=== PATIENT | female | born 1945 | race Caucasian/White ===

== ENCOUNTER 2017-09-25 16:12 | Observation (INO) | payer MEDICARE, MEDICAID, SELFPAY ==
[2017-09-25 16:13] VITALS: BP 146/91; PULSE 108; RESP 16; TEMP 36.4; O2SAT 98; BMI 55.4
--- NOTE | 2017-09-25 16:58 | ED.DCSUM_ITS ---
- ER Visit Summary Date of Service: 09/25/17 Chief Complaint: [Back pain] History of Present Illness: The patient is a 72 F [presents the emergency department with back pain ?2 weeks. Patient states that she has had severe discomfort for the last 2 weeks in her low back into both hips. Pain mostly on the right side today. Patient states this morning she had some pain that radiated down her right leg to about the knee and some numbness to the lateral aspect of her right thigh. Patient denies any trauma to her back. Patient states that she had some x-rays of her low back and hips 5 or 6 months ago that showed some arthritic changes. Patient had an appointment with her primary care physician today however she was late to do some traffic issues and therefore was told to come to the emergency department. Patient states that she has had some loose stools recently denies change in bowel or bladder function. Patient denies weakness in the extremities. Patient had a low-grade fever up to 100.4 yesterday. Patient has a history of prior lung transplant and is on multiple antirejection meds.] Patient states that she has 3 beds and how she she has been using all 3 at night to try to get comfortable. Physical Examination: [HEENT-PERRLA, EOMI. Cranial nerves II through XII grossly intact. TMs clear. Mucous membranes moist. No adenopathy. Cardiovascular-regular rate and rhythm without murmur or ectopy Lungs-clear to auscultation, chest wall stable without crepitus or subcu emphysema Abdomen-normoactive bowel sounds, soft, nontender, no rebound or rigidity, no peritoneal signs. Back exam-I am unable to reproduce patient's pain with palpation of her back. Patient has no significant tenderness over the thoracic or lumbar spine. Patient has no significant tenderness over the paraspinal musculature. There is no erythema or warmth noted to the skin. Patient has negative straight leg raise bilaterally. Deep tendon reflexes are plus 2 out of 4 bilaterally at the patella and Achilles. Patient has normal L5 extension bilaterally. Patient has normal sensation to light touch bilaterally. Extremities-intact ?4, normal range of motion, normal pulses, atraumatic] Test Results: [Urinalysis obtained showed 25 leukocyte esterase, positive nitrites, 0-5 WBCs, 0-5 RBCs. Emergency Department Course and Treatment]-patient was medicated with Dilaudid and Zofran and had good pain relief with that. Treatment Plan: [Patient will be admitted for pain control and further imaging] Disposition: [Admit] Impression: [Lumbar radiculopathy Intractable pain] This note was generated with [employer] dictation software. It may contain incorrect words, spelling, and punctuation that were not noted in review of the chart prior to signing ED Disposition - Plan for ED Patient: Chief Complaint: Back Referrals: Ruth Rashid MD [Primary Care Provider] -
[2017-09-25] MEDS: Ondansetron 4 MG/2 ML Vial IM (17:10)
[2017-09-25] MEDS: HYDROmorphone 1 MG/ML Syringe IM (17:10)
[2017-09-25 17:32] LABS: Bacteria 0 SEEN /hpf (None Seen); Mucous, Urine 0 SEEN /hpf (<or=2+)
[2017-09-25 17:36] LABS: Color, Urine Yellow (Yellow); Glucose, Dipstick Normal (Normal); Ketone-Dipstick 15 mg/dl (Negative); Leukocyte Esterase-Dipstick 25 /ul (Negative); Nitrite-Dipstick Positive (Negative); Occult Blood-Urine 25 /ul (Negative); Protein-Dipstick 100 mg/dl (Negative); Specific Gravity, Urine 1.025 (1.002-1.030); Urine Clarity Clear (Clear); Urine Urobilinogen 4 mg/dl (Normal)
[2017-09-25 17:39] LABS: Urine Bilirubin Dipstick 6 mg/dL (Negative)
[2017-09-25 17:44] LABS: Red Blood Cells-Urine 0-5 SEEN /hpf (0-5); Squamous Epithelial Cells - UA 0-5 SEEN /hpf (5-10); White Blood Cells 0-5 SEEN /hpf (0-5)
[2017-09-25 17:45] LABS: Hyaline Cast 10-25 SEEN /lpf (0-5)
[2017-09-25 18:13] VITALS: BP 127/78; PULSE 91; RESP 16; O2SAT 98
--- NOTE | 2017-09-25 18:29 | PCM.HP.STD ---
Problem List (1) Intractable back pain Status: Acute (2) Interstitial lung disease Status: Chronic (3) History of lung transplant Status: Chronic (4) GERD (gastroesophageal reflux disease) Status: Chronic Qualifiers: Esophagitis presence: esophagitis presence not specified Qualified Code(s): K21.9 - Gastro-esophageal reflux disease without esophagitis (5) RLS (restless legs syndrome) Status: Chronic (6) History of tobacco use Status: Chronic History of Present Illness Date of Admission: 09/25/17 Chief Complaint: Intractable back pain The patient is a 72 y/o F w/ PMHx: History of Interstitial Lung Disease s/p BL Lung Trxp 2009 on chronic anti-rejection medications, GERD, RLS, Chronic Diarrhea who presents to the [facility] ED on 09/25/17 with history of ongoing lower extremity as well as the lateral aspect of the right thigh with no recent trauma or increased activity ongoing and progressively worsening ?2 weeks noted to be nearly bedbound over the last 4 days with recent PCP evaluation and plain films of the lower back and hips unremarkable. She has noted recent low grade temperature recently. In the ED workup T 97.6, heart rate 108, BP 146/91, respiratory rate 16, 98% on room air, pending CBC, pending BMP, UA w/ positive leukocyte esterase and nitrites although no marketed WBC or urine bacteria noted. Int he ED patient administered zofran and dilaudid with notable improvement. Past Medical History Past Medical History (Chronic Problems): Chronic Problems Interstitial lung disease (Chronic) History of lung transplant (Chronic) GERD (gastroesophageal reflux disease) (Chronic) RLS (restless legs syndrome) (Chronic) History of tobacco use (Chronic) Allergies No Known Allergies Allergy (Verified 05/05/17 16:21) Home Medications: Ambulatory Orders Medication Instructions Recorded Acyclovir [Zovirax] 200 mg PO QODAY 09/27/15 Carbidopa/Levodopa [Carbidopa-Levo 1 each PO BID 09/27/15 25-100 mg Odt] Esomeprazole Mag Trihydrate 20 mg PO BID 09/27/15 [Nexium] Fluoxetine [Prozac] 30 mg PO DAILY 09/27/15 Mycophenolate Mofetil [Cellcept] 500 mg PO BID 09/27/15 Sucralfate [Carafate] 1 gm PO 4X/DAY 05/23/16 Tacrolimus [Astagraf Xl] 2 mg PO BID 09/27/15 predniSONE tablet 6 mg PO QODAY 09/27/15 Multivitamin [Multiple Vitamins] 1 each PO DAILY 05/05/17 Surgical History: - - Lung Txp BL, Trisha, Hysterectomy, Appendectomy, Cholecystectomy. 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 Tobacco Use: Non-smoker Alcohol: Rare Drugs: None - *Family History Maternal History Items: Diabetes Paternal History Items: COPD, Diabetes, Heart Disease Review of Systems Constitutional: Reports: Fever - Low grade T day prior., Malaise, Weakness, Fatigue. Denies: Chills, Weight Change HEENT: Denies: Head Aches, Sinus Congestion, Sinus Drainage Cardiovascular: Denies: Chest Pain, Palpitations Respiratory: Denies: Cough, Shortness of breath at rest, Sputum production Gastrointestinal: Denies: Abdominal Pain, Nausea, Vomiting Genitourinary: Denies: Dysuria Musculoskeletal: Reports: Back Pain, Leg Pain. Denies: Joint Pain, Joint Tenderness Skin: Denies: Rash, Wounds Neurological: Reports: Tingling. Denies: Focal weakness, Numbness Psychiatric: Reports: Anxiety, Depression. Denies: Homicidal Ideations, Suicidal Ideations Hematologic/ Lymphatic: Denies: Easy Bruising, Easy Bleeding VTE Information - Inpt Only VTE Present on Admission: No VTE Mechan Device Prophylaxis: SCD's VTE Pharm Prophylaxis ordered?: Yes Patient Problems: Active and Suspected Problems Intractable back pain (Acute) Subjective: Seated upright in the ED bed, NAD, notes improvement w/ recent pain regimen. Objective: Physical Examination: General: awake, alert, oriented x 3 and cooperative, seated upright in the ED bed in no apparent distress, notes marked improvement. Skin: normal color, turgor, no icterus, cyanosis. HEENT: AT/NC, EOMI, PERRLA, mildly dry MM, no carotid bruits or JVD noted. Lungs: CTA bilaterally, moderate effort, mild decrease BL bases, no rales, ronchi or wheezing. Heart: Regular rate and rhythm; no gallop, rub audible. Abdomen: soft, NTTP, ND, normal BS, no HSM. Extremities: no cyanosis, clubbing, + R SLR. Neurological: patient awake, alert, oriented x 3; cognitive function intact; pupils equally reactive to light and accomodation; cranial nerves II-XII grossly normal, moving all 4 extremities but limited RLE, some discomfort w/ straight leg raise, no discomfort w/ lumbar posterior palpation, no current radiculopathy, strength moderately to severely globally decreased. Psychiatric: affect appears normal, no acute evidence of depressive or anxiety feelings. - Physical Exam Vital Signs Temp Pulse Resp BP Pulse Ox 97.6 F L 108 H 16 146/91 H 98 09/25/17 16:13 09/25/17 16:13 09/25/17 16:13 09/25/17 16:13 09/25/17 16:13 Oxygen Delivery Method Room Air Weight: 313 lb 0.902 oz Body Mass Index (BMI) 55.4 Laboratory Tests Past 24 Hrs 09/25/17 16:20 Urine Color Yellow Urine Clarity Clear Urine pH 5.0 Ur Specific [place] 1.025 Urine Protein 100 H Urine Glucose (UA) Normal Urine Ketones 15 H Urine Occult Blood 25 H Urine Nitrite Positive H Urine Bilirubin 6 H Urine Urobilinogen 4 H Ur Leukocyte Esterase 25 H Urine RBC 0-5 SEEN Urine WBC 0-5 SEEN Ur Squamous Epith Cells 0-5 SEEN Urine Bacteria 0 SEEN Hyaline Casts 10-25 SEEN Urine Mucus 0 SEEN Assessment/Plan Active and Suspected Problems Intractable back pain (Acute) The patient is a 72 y/o F w/ PMHx: History of Interstitial Lung Disease s/p BL Lung Trxp 2009 on chronic anti-rejection medications, GERD, RLS, Chronic Diarrhea who presents to the [facility] ED on 09/25/17 with history of ongoing lower extremity as well as the lateral aspect of the right thigh with no recent trauma or increased activity ongoing and progressively worsening ?2 weeks noted to be nearly bedbound over the last 4 days with recent PCP evaluation and plain films of the lower back and hips unremarkable. She has noted recent low grade temperature recently. (1) Acute Intractable Back Pain w/ Radiculopathy: Outpatient plain films noted to be unremarkable. Intractable pain in the ED, did improve w/ interventions. Will admit to [facility], maintain on fall precautions, frequent positioning, initiate low dose gabapentin, scheduled toradol, po/IV pain regimen, flexeril low dose, prednisone burst therapy, anti-emetics, bowel regimen. Will consult PT and OT for evaluation. Will obtain MRI lumbar region given ongoing discomfort. (2) Low Grade Temperature, Unclear Etiology: UA w/ + LE low amount and nitrite but no WBC or bacteria, UCx pending, will obtain CXR, pending CBC, BMP upon admission. Closely monitor given Txp status. (3) History of Interstitial Lung Disease s/p BL Lung Txp: Noted Txp 2009 on chronic anti-rejection medications, continue home zovirax, cellcept, tacrolimus, hold lower dose prednisone while on burst therapy. (4) Anxiety and Depression: Maintain on home prozac regimen. (5) GERD, s/p Trisha: Maintain on home PPI, sucralafate. (6) RLS: Maintain on home sinemet regimen. (7) DVT Prophylaxis: SCDs, lovenox if BMP appropriate. Code Visit OBSV E&M: 11133 Initial observation care L3
[2017-09-25 18:43] LABS: Absolute Lymphocyte Count 1.59 X10^3/ul (0.83-4.51); Absolute Neutrophil Count 6.9 X10^3/uL (2.0-7.7); Basophil# 0.03 X10^3/uL; Basophil% 0.3 % (0-1); Eosinophil# 0.03 X10^3/uL; Eosinophils% 0.3 % (0-5); Hematocrit 36.4 % (37-47); Hemoglobin 11.9 g/dl (12.0-15.0); Lymphocyte # 1.59 X10^3/ul (4.0); Lymphocyte % 17.1 % (19-41); Mean Corp Hgb Conc 32.7 g/gl (32-36); Mean Corpuscular Hgb 29.5 pg (27.0-32.0); Mean Corpuscular Volume 90.3 fL (81-99); Mean Platelet Vol. 9.4 fl (6.2-12.0); Monocyte# 0.74 X10^3/uL; Monocyte% 7.9 % (0-10); Neutrophil % 74.2 % (47-70); Platelet Count 364 K/mm3 (150-450); RBC Distribution Width CV 13.2 % (11.6-14.6); RBC Distribution Width SD 43.3 fl (35.1-43.9); Red Blood Count 4.03 M/mm3 (4.2-5.4); White Blood Count 9.3 K/mm3 (4.4-11.0)
[2017-09-25 18:48] LABS: POSITIVE COUNT NO; POSITIVE DIFFERENTIAL NO; POSITIVE MORPHOLOGY NO
[2017-09-25 18:54] VITALS: BMI 25.3
[2017-09-25 18:55] LABS: Anion Gap 7 (5-15); BUN 33 mg/dL (7-18); BUN/Creat Ratio 20.2 RATIO (10-20); Calcium,Total 8.7 mg/dL (8.5-10.1); Chloride 106 mmol/L (98-107); Creatinine, Serum 1.63 mg/dL (0.55-1.02); EST Glomerular Filtration Rate 33 mL/min (>60); Est Glom Filt Rate - Afr Amer 40 mL/min (>60); Estimated Creatinine Clearance 26.57 ml/min; Glucose 102 mg/dL (74-106); Potassium 4.3 mmol/L (3.5-5.1); Sodium Level 135 mmol/L (136-145)
[2017-09-25 19:13] VITALS: BP 99/73; PULSE 94; RESP 18; TEMP 37.4; O2SAT 99
[2017-09-25] MEDS: Gabapentin 100 MG Capsule PO (19:41)
[2017-09-25] MEDS: predniSONE 20 MG Tablet 40 MG PO (19:41)
--- NOTE | 2017-09-25 20:01 | RAD_ITS ---
STUDY: X-RAY CHEST REASON FOR EXAM: Female, 72 years old. Fever. Previous double lung transplant. TECHNIQUE: Frontal and lateral views of the chest. COMPARISON: 09/27/2015. FINDINGS: The lungs are clear and expanded. There is no demonstrated pleural abnormality. Normal size heart. Normal mediastinum and deysi. Normal visualized pulmonary arteries. Normal visualized aortic arch and descending thoracic aorta. Normal visualized thoracic spine. Normal visualized ribs, clavicles, and shoulders. Fixation prosthesis is seen across the body of the sternum. There is no demonstrated abnormality of the visualized soft tissue structures of the upper abdomen. RAD/Chest PA and Lateral IMPRESSION: Normal x-ray examination of the chest. Electronically Signed: Roberto Hennessy MD at 20:24 EDT , Service support ,
[2017-09-25 21:04] VITALS: O2SAT 98
[2017-09-25 21:35] VITALS: PULSE 94; RESP 18; O2SAT 99
[2017-09-25 21:51] VITALS: BP 138/75; PULSE 87; RESP 18; TEMP 36.8; O2SAT 98
[2017-09-25] MEDS: Sucralfate 1 GM Tablet PO (21:53)
[2017-09-25] MEDS: Tacrolimus Anhydrous 1 MG Capsule 2 MG PO (21:53)
[2017-09-25] MEDS: Pantoprazole Sodium 20 MG Tablet PO (21:53)
[2017-09-25] MEDS: Mycophenolate Mofetil 250 MG Capsule 500 MG PO (21:54)
[2017-09-26 03:12] VITALS: BP 99/67; PULSE 83; RESP 18; TEMP 36.8; O2SAT 99
[2017-09-26 05:46] LABS: Absolute Lymphocyte Count 0.83 X10^3/ul (0.83-4.51); Absolute Neutrophil Count 5.9 X10^3/uL (2.0-7.7); Basophil# 0.01 X10^3/uL; Basophil% 0.1 % (0-1); Hematocrit 35.3 % (37-47); Hemoglobin 11.5 g/dl (12.0-15.0); Lymphocyte # 0.83 X10^3/ul (4.0); Lymphocyte % 11.9 % (19-41); Mean Corp Hgb Conc 32.6 g/gl (32-36); Mean Corpuscular Hgb 30.3 pg (27.0-32.0); Mean Corpuscular Volume 93.1 fL (81-99); Mean Platelet Vol. 9.6 fl (6.2-12.0); Monocyte# 0.25 X10^3/uL; Monocyte% 3.6 % (0-10); Neutrophil # 5.86 X10^3/uL (2.7-7.7); Neutrophil % 84.1 % (47-70); Platelet Count 344 K/mm3 (150-450); RBC Distribution Width CV 12.9 % (11.6-14.6); RBC Distribution Width SD 42.5 fl (35.1-43.9); Red Blood Count 3.79 M/mm3 (4.2-5.4)
[2017-09-26 05:59] LABS: Anion Gap 9 (5-15); BUN 42 mg/dL (7-18); BUN/Creat Ratio 23.7 RATIO (10-20); Calcium,Total 8.9 mg/dL (8.5-10.1); Chloride 108 mmol/L (98-107); Creatinine, Serum 1.77 mg/dL (0.55-1.02); EST Glomerular Filtration Rate 30 mL/min (>60); Est Glom Filt Rate - Afr Amer 36 mL/min (>60); Estimated Creatinine Clearance 24.46 ml/min; Glucose 137 mg/dL (74-106); Potassium 4.7 mmol/L (3.5-5.1); Sodium Level 139 mmol/L (136-145)
[2017-09-26 06:05] LABS: POSITIVE COUNT NO; POSITIVE DIFFERENTIAL NO; POSITIVE MORPHOLOGY NO
[2017-09-26] MEDS: Sucralfate 1 GM Tablet PO ×2 (06:51→12:16)
[2017-09-26] MEDS: Carbidopa/Levodopa 25/100 Tablet PO (06:51)
[2017-09-26 07:20] VITALS: O2SAT 96
--- NOTE | 2017-09-26 08:00 | MRI_ITS ---
STUDY: MRI LUMBAR SPINE WITHOUT CONTRAST REASON FOR EXAM: Female, 72 years old. Low back pain and right leg and hip pain. TECHNIQUE: Standardized fat and water weighted pulse sequences were obtained in the sagittal and axial planes. COMPARISON: None FINDINGS: T12-L1: There is narrowing of the disc. The endplates have irregular contours possibly related to small Schmorl's nodes. There is a disc bulge and osteophyte complex. Neuroforamina are bilaterally narrowed without evidence for nerve impingement. Normal lumbar lordosis. There is no substantial scoliosis. Normal conus medullaris that terminates at the T12-L1 level. L1-2: There is mild annular disk bulge and osteophyte complex. There is mild degenerative arthropathy of the facet joints. Bilateral neuroforamina are narrowed without MR evidence for nerve impingement. There is no significant central canal stenosis. L2-3: There is abnormal signal within the posterior aspect of the right side of the L2 vertebral body. There appears to be some extraosseous extension of this lesion into the spinal canal causing narrowing of the lateral recess and probable impingement of the right L3 nerve root at the lateral recess. Neural foramina are bilaterally narrowed. There may be some tumoral involvement of the right L2 nerve root at the neural foramen. L3-4: There is a moderately large broad central disc protrusion. There is moderate annular disc bulge and osteophyte complex. There is mild central acquired canal stenosis. There is moderate degenerative arthropathy of facet joints. Neural foramina are bilaterally narrowed with potential impingement of the right L3 nerve root at the neural foramen. L4-5: There is a large focal left foraminal disc protrusion and osteophyte complex. There is severe left-sided neural foraminal narrowing with probable impingement of the left L4 nerve root at the neural foramen. The right neural foramen is moderately narrowed. There is severe acquired canal stenosis. There is a moderately severe degenerative arthropathy of the left-sided facet joint and mild degenerative arthropathy of the right-sided facet joint. L5-S1: There is mild annular disk bulge and osteophyte complex. There is mild degenerative arthropathy of the facet joints. Bilateral neuroforamina are narrowed without MR evidence for nerve impingement. There is no significant central canal stenosis. Normal visualized sacral ala. Normal visualized paraspinous soft tissue structures. MRI/Spine Lumbar (Routine) IMPRESSION: 1. 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 2. Multilevel degenerative disc disease and degenerative arthropathy lumbar spine with acquired canal stenosis, neural foraminal narrowing and potential nerve impingement, as described. Electronically Signed: Johana Delgado MD at 10:16 EDT , Service support ,
[2017-09-26 10:20] VITALS: BP 107/55; PULSE 99; RESP 18; TEMP 36.8; O2SAT 99
[2017-09-26] MEDS: Multivitamins,Therapeutic Tablet 1 TABLET PO (10:31)
[2017-09-26] MEDS: predniSONE 20 MG Tablet 40 MG PO (10:31)
[2017-09-26] MEDS: FLUoxetine 10 MG Capsule 30 MG PO (10:31)
[2017-09-26] MEDS: Gabapentin 100 MG Capsule PO (10:31)
[2017-09-26] MEDS: Tacrolimus Anhydrous 1 MG Capsule 2 MG PO (10:32)
[2017-09-26] MEDS: Mycophenolate Mofetil 250 MG Capsule 500 MG PO (10:32)
[2017-09-26] MEDS: Pantoprazole Sodium 20 MG Tablet PO (10:33)
--- NOTE | 2017-09-26 10:57 | CASEMGMT ---
BLANCA SARAH Face to Face with patient for initial transition planning/care coordination assessment. BLANCA SARAH introduced self and role at [facility]. Patient sitting in chair, alert and oriented. Patient willing to participate in assessment and is able to answer all questions appropriately. Care providers, pharmacy, and demographics verified. See link attached. Patient wishes to discharge home, denies need for home health at this time. Patient states that she has old HPOA with listed as HPOA. SHIN Healy updated in regards to patient wishing to update HPOA. Patient states she has no further needs or concerns at this time. CM to follow for discharge planning needs that may arise. Disposition Plan: Patient to discharge home with family support and follow-up plans in place.
--- NOTE | 2017-09-26 13:53 | PCM.DC ---
- Discharge Diagnoses Current Active Problems: Current Active and Chronic Problems Interstitial lung disease (Chronic) History of lung transplant (Chronic) GERD (gastroesophageal reflux disease) (Chronic) RLS (restless legs syndrome) (Chronic) History of tobacco use (Chronic) Intractable back pain (Acute) You will use the following diet at home:: No restrictions Your food should be the consistency of: Regular Discharge Activity: Return to Normal Activity Call your doctor if you observe: - - Sudden loss of bladder or bowel, or sudden development of weakness of right leg, particulary in thigh. Allergies/Adverse Reactions: Allergies No Known Allergies Allergy (Verified 05/05/17 16:21) Medications to take at Discharge Acyclovir [Zovirax] 200 mg PO MOWEFR 09/27/15 Carbidopa/Levodopa [Carbidopa-Levo 25-100 mg Odt] 1 each PO BID 09/27/15 Esomeprazole Mag Trihydrate [Nexium] 20 mg PO BID 09/27/15 Fluoxetine [Prozac] 30 mg PO DAILY 09/27/15 Mycophenolate Mofetil [Cellcept] 500 mg PO BID 09/27/15 Sucralfate [Carafate] 1 gm PO 4X/DAY 09/27/15 Tacrolimus [Astagraf Xl] 2 mg PO BID 09/27/15 predniSONE tablet 6 mg PO TUTHSA 09/27/15 Multivitamin [Multiple Vitamins] 1 each PO DAILY 05/05/17 Gabapentin [Neurontin] 100 mg PO TIDCM #90 cap 09/26/17 Hydrocodone Bitart/Apap 5-325 [[place] 5/325] 1 - 2 tab PO Q6H PRN PRN 5 Days #15 tab 09/26/17 The following prescriptions were given: Hydrocodone Bitart/Apap 5-325 [[place] 5/325] 1 - 2 tab PO Q6H PRN PRN 5 Days #15 tab PRN Reason: Moderate-severe pain Gabapentin [Neurontin] 100 mg PO TIDCM #90 cap Primary Care Physician: Ruth Rashid MD [Primary Care Provider] - Please follow up with your Primary Care Physician in: Call her office today for follow up plan with neurosurgery. Otherwise
--- NOTE | 2017-09-26 13:56 | DCINST_ITS ---
- Discharge Diagnoses Current Active Problems: Current Active and Chronic Problems Interstitial lung disease (Chronic) History of lung transplant (Chronic) GERD (gastroesophageal reflux disease) (Chronic) RLS (restless legs syndrome) (Chronic) History of tobacco use (Chronic) Intractable back pain (Acute) You will use the following diet at home:: No restrictions Your food should be the consistency of: Regular Discharge Activity: Return to Normal Activity Call your doctor if you observe: - - Sudden loss of bladder or bowel, or sudden development of weakness of right leg, particulary in thigh. Allergies/Adverse Reactions: Allergies No Known Allergies Allergy (Verified 05/05/17 16:21) Medications to take at Discharge Acyclovir [Zovirax] 200 mg PO MOWEFR 09/27/15 Carbidopa/Levodopa [Carbidopa-Levo 25-100 mg Odt] 1 each PO BID 09/27/15 Esomeprazole Mag Trihydrate [Nexium] 20 mg PO BID 09/27/15 Fluoxetine [Prozac] 30 mg PO DAILY 09/27/15 Mycophenolate Mofetil [Cellcept] 500 mg PO BID 09/27/15 Sucralfate [Carafate] 1 gm PO 4X/DAY 09/27/15 Tacrolimus [Astagraf Xl] 2 mg PO BID 09/27/15 predniSONE tablet 6 mg PO TUTHSA 09/27/15 Multivitamin [Multiple Vitamins] 1 each PO DAILY 05/05/17 Gabapentin [Neurontin] 100 mg PO TIDCM #90 cap 09/26/17 Hydrocodone Bitart/Apap 5-325 [[place] 5/325] 1 - 2 tab PO Q6H PRN PRN 5 Days #15 tab 09/26/17 The following prescriptions were given: Hydrocodone Bitart/Apap 5-325 [[place] 5/325] 1 - 2 tab PO Q6H PRN PRN 5 Days #15 tab PRN Reason: Moderate-severe pain Gabapentin [Neurontin] 100 mg PO TIDCM #90 cap Primary Care Physician: Ruth Rashid MD [Primary Care Provider] - Please follow up with your Primary Care Physician in: Call her office today for follow up plan with neurosurgery. Otherwise
--- NOTE | 2017-09-26 13:58 | PCM.DC.SUM ---
Discharge Date and Diagnosis - Problem List Patient Problems: Active and Suspected Problems Intractable back pain (Acute) Date of Admission: 09/25/17 Date of Discharge: 09/26/17 - Primary Discharge Diagnosis Active and Suspected Problems Intractable back pain (Acute) Acute Right L3 radiculopathy. Mass, L3. - Secondary Discharge Diagnosis Chronic Problems Interstitial lung disease (Chronic) History of lung transplant (Chronic) GERD (gastroesophageal reflux disease) (Chronic) RLS (restless legs syndrome) (Chronic) History of tobacco use (Chronic) Hospital Course and Treatment Imaging Results: 09/26/17 08:00 Spine Lumbar (Routine) [MRI] Routine Diagnostic Data Chest X-Ray 09/25/17 20:01 IMPRESSION: Normal x-ray examination of the chest. Electronically Signed: Roberto Hennessy MD at 20:24 EDT , Service support , Lumbar Spine MRI 09/26/17 08:00 IMPRESSION: 1. 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 2. Multilevel degenerative disc disease and degenerative arthropathy lumbar spine with acquired canal stenosis, neural foraminal narrowing and potential nerve impingement, as described. 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 Operations: None Procedures: None Summary of Care Provided: The patient is a 72 y/o F w/ PMHx: History of Interstitial Lung Disease s/p BL Lung Trxp 2010 on chronic anti-rejection medications, GERD, RLS, Chronic Diarrhea who presents to the [facility] ED on 09/25/17 with history of ongoing lower extremity as well as the lateral aspect of the right thigh with no recent trauma or increased activity ongoing and progressively worsening ?2 weeks noted to be nearly bedbound over the last 4 days with recent PCP evaluation and plain films of the lower back and hips unremarkable. She has noted recent low grade temperature recently. She has pain coming from right low back radiate around upper thigh to anterior lower thigh, roughly in L3 distribution. She was doing better following day but MRI showed questionable area of L2 as above, possibly due to malignancy. She has no motor dysfunction of legs, and pain is better. She reports one bowel accident yesterday, but she attributes to combination of loose stool and inability to reach bathroom quick enough due to pain. She is continent for bowel and bladder today. I had discussed with Dr. Rashid, her PCP on 09/26/17 that the patient needs neurosurgery follow up for concerning finding of L2 lesion. She will make arrangement as outpatient. Instruct patient to call Dr. Rashid's office today for this arrangement. Also, instruct patient to seek medical attention if she develops weakness of legs, or sudden loss of bladder/bowel control. Since she is doing well clinically, it is appropriate to follow up as outpatient since this facility has no neurosurgery services. Rx for [place] 5/325 mg po qid prn #15 and gabapentin 100 mg po tid were given. (1) L3 radiculopathy with suspicious lesion on L2. See above. (2) Low Grade Temperature, Unclear Etiology: UA w/ + LE low amount and nitrite but no WBC or bacteria, UCx pending, will obtain CXR, pending CBC, BMP upon admission. Closely monitor given Txp status. (3) History of Interstitial Lung Disease s/p BL Lung Txp: Noted Txp 2009 on chronic anti-rejection medications, continue home zovirax, cellcept, tacrolimus, hold lower dose prednisone while on burst therapy. (4) Anxiety and Depression: Maintain on home prozac regimen. (5) GERD, s/p Trisha: Maintain on home PPI, sucralafate. (6) RLS: Maintain on home sinemet regimen. (7) DVT Prophylaxis: SCDs, lovenox Discharge Diet: No Restrictions Discharge Activity: Return to Normal Activity Call your doctor if you observe: - - Sudden loss of bladder or bowel, or sudden development of weakness of right leg, particulary in thigh. Home Medications: Medications to take at Discharge Acyclovir [Zovirax] 200 mg PO MOWEFR 09/27/15 Carbidopa/Levodopa [Carbidopa-Levo 25-100 mg Odt] 1 each PO BID 09/27/15 Esomeprazole Mag Trihydrate [Nexium] 20 mg PO BID 09/27/15 Fluoxetine [Prozac] 30 mg PO DAILY 09/27/15 Mycophenolate Mofetil [Cellcept] 500 mg PO BID 09/27/15 Sucralfate [Carafate] 1 gm PO 4X/DAY 09/27/15 Tacrolimus [Astagraf Xl] 2 mg PO BID 09/27/15 predniSONE tablet 6 mg PO TUTHSA 09/27/15 Multivitamin [Multiple Vitamins] 1 each PO DAILY 05/05/17 Gabapentin [Neurontin] 100 mg PO TIDCM #90 cap 09/26/17 Hydrocodone Bitart/Apap 5-325 [[place] 5/325] 1 - 2 tab PO Q6H PRN PRN 5 Days #15 tab 09/26/17 Following Prescrptions Were Given to Patient: Hydrocodone Bitart/Apap 5-325 [[place] 5/325] 1 - 2 tab PO Q6H PRN PRN 5 Days #15 tab PRN Reason: Moderate-severe pain Gabapentin [Neurontin] 100 mg PO TIDCM #90 cap Primary Care Physician: Ruth Rashid MD [Primary Care Provider] - Please follow up with your Primary Care Physician in: Call her office today for follow up plan with neurosurgery. Otherwise Disposition: Home Patient Condition:: Good Medical Necessity - Tobacco Use Smoking Status: Former smoker Tobacco Use: Non-smoker Meaningful Use Info Meaningful Use Diagnoses (Choose all that apply): None applicable Code Visit OBSV E&M: 37028 Observation care discharge
--- NOTE | 2017-09-26 14:08 | DS.PCM_ITS ---
Discharge Date and Diagnosis - Problem List Patient Problems: Active and Suspected Problems Intractable back pain (Acute) Date of Admission: 09/25/17 Date of Discharge: 09/26/17 - Primary Discharge Diagnosis Active and Suspected Problems Intractable back pain (Acute) Acute Right L3 radiculopathy. Mass, L3. - Secondary Discharge Diagnosis Chronic Problems Interstitial lung disease (Chronic) History of lung transplant (Chronic) GERD (gastroesophageal reflux disease) (Chronic) RLS (restless legs syndrome) (Chronic) History of tobacco use (Chronic) Hospital Course and Treatment Imaging Results: 09/26/17 08:00 Spine Lumbar (Routine) [MRI] Routine Diagnostic Data Chest X-Ray 09/25/17 20:01 IMPRESSION: Normal x-ray examination of the chest. Electronically Signed: Roberto Hennessy MD at 20:24 EDT , Service support , Lumbar Spine MRI 09/26/17 08:00 IMPRESSION: 1. 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 2. Multilevel degenerative disc disease and degenerative arthropathy lumbar spine with acquired canal stenosis, neural foraminal narrowing and potential nerve impingement, as described. Electronically Signed: Johana Delgado MD at 10:16 EDT , Service support , [employer]ERGART[employer] TEACHER: none. Operations: None Procedures: None Summary of Care Provided: The patient is a 72 y/o F w/ PMHx: History of Interstitial Lung Disease s/p BL Lung Trxp 2010 on chronic anti-rejection medications, GERD, RLS, Chronic Diarrhea who presents to the [facility] ED on 09/25/17 with history of ongoing lower extremity as well as the lateral aspect of the right thigh with no recent trauma or increased activity ongoing and progressively worsening ?2 weeks noted to be nearly bedbound over the last 4 days with recent PCP evaluation and plain films of the lower back and hips unremarkable. She has noted recent low grade temperature recently. She has pain coming from right low back radiate around upper thigh to anterior lower thigh, roughly in L3 distribution. She was doing better following day but MRI showed questionable area of L2 as above, possibly due to malignancy. She has no motor dysfunction of legs, and pain is better. She reports one bowel accident yesterday, but she attributes to combination of loose stool and inability to reach bathroom quick enough due to pain. She is continent for bowel and bladder today. I had discussed with Dr. Rashid, her PCP on 09/26/17 that the patient needs neurosurgery follow up for concerning finding of L2 lesion. She will make arrangement as outpatient. Instruct patient to call Dr. Rashid's office today for this arrangement. Also, instruct patient to seek medical attention if she develops weakness of legs, or sudden loss of bladder/bowel control. Since she is doing well clinically, it is appropriate to follow up as outpatient since this facility has no neurosurgery services. Rx for Sheridan 5/325 mg po qid prn #15 and gabapentin 100 mg po tid were given. (1) L3 radiculopathy with suspicious lesion on L2. See above. (2) Low Grade Temperature, Unclear Etiology: UA w/ + LE low amount and nitrite but no WBC or bacteria, UCx pending, will obtain CXR, pending CBC, BMP upon admission. Closely monitor given Txp status. (3) History of Interstitial Lung Disease s/p BL Lung Txp: Noted Txp 2009 on chronic anti-rejection medications, continue home zovirax, cellcept, tacrolimus , hold lower dose prednisone while on burst therapy. (4) Anxiety and Depression: Maintain on home prozac regimen. (5) GERD, s/p Trisha: Maintain on home PPI, sucralafate. (6) RLS: Maintain on home sinemet regimen. (7) DVT Prophylaxis: SCDs, lovenox Discharge Diet: No Restrictions Discharge Activity: Return to Normal Activity Call your doctor if you observe: - - Sudden loss of bladder or bowel, or sudden development of weakness of right leg, particulary in thigh. Home Medications: Medications to take at Discharge Acyclovir [Zovirax] 200 mg PO MOWEFR 09/27/15 Carbidopa/Levodopa [Carbidopa-Levo 25-100 mg Odt] 1 each PO BID 09/27/15 Esomeprazole Mag Trihydrate [Nexium] 20 mg PO BID 09/27/15 Fluoxetine [Prozac] 30 mg PO DAILY 09/27/15 Mycophenolate Mofetil [Cellcept] 500 mg PO BID 09/27/15 Sucralfate [Carafate] 1 gm PO 4X/DAY 09/27/15 Tacrolimus [Astagraf Xl] 2 mg PO BID 09/27/15 predniSONE tablet 6 mg PO TUTHSA 09/27/15 Multivitamin [Multiple Vitamins] 1 each PO DAILY 05/05/17 Gabapentin [Neurontin] 100 mg PO TIDCM #90 cap 09/26/17 Hydrocodone Bitart/Apap 5-325 [Sheridan 5/325] 1 - 2 tab PO Q6H PRN PRN 5 Days #15 tab 09/26/17 Following Prescrptions Were Given to Patient: Hydrocodone Bitart/Apap 5-325 [Sheridan 5/325] 1 - 2 tab PO Q6H PRN PRN 5 Days #15 tab PRN Reason: Moderate-severe pain Gabapentin [Neurontin] 100 mg PO TIDCM #90 cap Primary Care Physician: Ruth Rashid MD [Primary Care Provider] - Please follow up with your Primary Care Physician in: Call her office today for follow up plan with neurosurgery. Otherwise Disposition: Home Patient Condition:: Good Medical Necessity - Tobacco Use Smoking Status: Former smoker Tobacco Use: Non-smoker Meaningful Use Info Meaningful Use Diagnoses (Choose all that apply): None applicable Code Visit OBSV E&M: 10462 Observation care discharge
--- NOTE | 2017-09-26 14:21 | CASEMGMT ---
Social Work Received referral from RN TYREL that pt would like to update her HCPOA. Met with pt and provided information regarding HCPOA. Pt had previously made a HCPOA naming her who is now . Assisted pt with completing a new HCPOA. Original given to pt and copy placed in pt chart. No further SW needs at this time. LISA Truong
== END 2017-09-26 14:16 | disposition home or self-care (01) ==
LOC: ED 17:46 → MS3 18:38
PROVIDERS: Admitting Provider Family Medicine; Emergency Provider Emergency Medicine; Family Provider Internal Medicine; PCP Internal Medicine; Visit Provider Hospitalist
DX: M54.16 Radiculopathy, lumbar region (principal); K21.9 Gastro-esophageal reflux disease without esophagitis; G25.81 Restless legs syndrome; J84.9 Interstitial pulmonary disease, unspecified; F41.9 Anxiety disorder, unspecified; F32.9 Major depressive disorder, single episode, unspecified; N18.3 Chronic kidney disease, stage 3 (moderate); Z87.891 Personal history of nicotine dependence; Z94.2 Lung transplant status; Z79.899 Other long term (current) drug therapy
CPT/HCPCS: 36415; 71046; 72148; 80048; 81001; 85025; 87086; 87088; 96372; 96374; 97161; 97802; 99218; 99284; A4216; G0378; J2405

== ENCOUNTER → 2018-01-22 09:27 | Outpatient (CLI) | payer MEDICARE, MEDICAID, SELFPAY ==
--- NOTE | 2018-01-22 | ASPOS_PTH ---
PATIENT: RASHIDA CANALES LOC: [facility] U#:[id number] AGE/SX: 79/F ROOM: RE01/22/[address]: Dr. Darrin Bustamante MD : 1945 BED: DIS: SPEC #: [id number] RECD: 01/22/18 11:06 STATUS: LINNETTE NIK #: [id number] NESTOR: 01/22/18 00:[address]: Darrin Bustamante DEPT: CYTOLOGY RECD BY: Dov Wolff ENTERED: 01/22/18 11:07 SP TYPE: ASP HERE OTHR DR: Dr. Ruth Rashid MD Tissues: Neck, NOS Procedures: Pap Stain (control) Special Stain Group II Surgery Specimen Level IV Diff Quik Stain (control) Cell Block Cytology Other Fine Needle Asp on Site HEADER OPERATION: FNA left upper neck mass PRE-OP DIAGNOSIS: Left upper neck mass TISSUE SUBMITTED: FNA left upper neck mass, smears and fluid for cytology, cell block (3 pap, 7 DQ) DIAGNOSIS CYTOLOGY Fine needle aspiration, left upper neck mass (smears and cell block): Rare atypical lymphocytes present. Flow cytometric analysis reveals no clonal evidence of B-cell neoplasm. See comment. AM:aubrie 01/29/18 COMMENT The specimen is evaluated at the time of FNA by Dr. Arriola. Immediate Evaluation = Atypical lymphocytes suggestive of lymphoproliferative disorder. Only rare B-cells were recovered for FLOW analysis using an enrichment procedure. These cells do not coexpress CD5 or CD10. The kappa/lambda ratio is slightly increased. A lymphoproliferative disorder is suspected. An incisional or excisional biopsy is recommended for definitive classification. Immunohistochemistry ([id number]) does not reveal evidence of malignancy. Only rare cells are harvested for cell block prelaration. Case has been reviewed in consultation with Dr. Walden who concurs with the above diagnosis. IDC:SJ CYTOLOGY STUDY Slides are reviewed. CYTOLOGY GROSS Received is 40 ml of clear colorless fluid labeled with the patient's name, and designated left upper neck mass. Three pap and seven Diff-Quik stains are made from the submitted fluid and the rest is added to CytoLyt for cell block preparation. Submitted for cytology study. / AM:aubrie 01/22/18 TC:? CPT: 72646, 95916, 45347, 12880
--- NOTE | 2018-01-22 | IMM_PTH ---
PATIENT: RASHIDA CANALES LOC: LAB U#:[id number] AGE/SX: 79/F ROOM: RE01/22/[address]: Dr. Darrin Bustamante MD : 1945 BED: DIS: SPEC #: [id number] RECD: 01/29/18 08:37 STATUS: LINNETTE REIraida #: [id number] NESTOR: 01/22/18 00:[address]: Darrin Bustamante DEPT: IMMUNOHISTOCHEMISTRY RECD BY: Samantha Senior ENTERED: 01/29/18 08:39 SP TYPE: IMMUNO OTHR DR: Dr. Ruth Rashid MD Tissues: Neck, NOS Procedures: CD138 (add) CD20 (add) CD3 (add) CD45 (add) CD79A (add) Pankeratin (add) CD5 (initial) PHYSICIAN & INSTITUTION [place] [id number] SPECIMEN INFORMATION: Tissue Source: Left upper neck mass, fine needle aspiration Clinical Info: Left upper neck mass Specimen Number: [id number] CPT code: 35495, 04729 x6 METHODOLOGY: Deparaffinized sections of prefer/formalin-fixed tissue or PAP/DQ stained slides are incubated with monoclonal/polyclonal antibodies/oligonucleotide probes. Localization is made via biotin free immunoperoxidase method. Appropriate controls are performed and reacted as expected. Results on target cell population are indicated in the following table: RESULTS: ANTIBODY / CLONE RESULT CD3 (PS1) positive CD5 (SP10) positive CD20 (L26) positive CD45 (RP2/18) positive CD79a (11E3) positive CD138 (B-A38) negative AE1-3 (AE1/AE3/PCK26) negative These tests were developed and their performance characteristics determined by [facility]. They may not have been cleared or approved by the [place]. Food and Drug Administration. The FDA has determined that such clearance or approval is not necessary. INTERPRETATION: Left upper neck mass, fine needle aspiration: No evidence of malignancy. AM:aubrie 01/29/18 Comment: Only rare cells are present for evaluation.
== END ==
PROVIDERS: Family Provider Internal Medicine; PCP Internal Medicine; Visit Provider Otolaryngology
DX: R22.1 Localized swelling, mass and lump, neck (principal)
CPT/HCPCS: 10021; 88161; 88305; 88313; 88341; 88342

== ENCOUNTER → 2018-07-31 17:54 | Outpatient (CLI) | payer MEDICARE, MEDICAID, SELFPAY ==
[2018-07-31 18:41] LABS: Absolute Lymphocyte Count 1.77 X10^3/ul (0.83-4.51); Absolute Neutrophil Count 6.6 X10^3/uL (2.0-7.7); Basophil# 0.06 X10^3/uL; Basophil% 0.7 % (0-1); Eosinophil# 0.32 X10^3/uL; Eosinophils% 3.5 % (0-5); Hematocrit 23.1 % (37-47); Hemoglobin 7.3 g/dl (12.0-15.0); Lymphocyte # 1.77 X10^3/ul (4.0); Lymphocyte % 19.6 % (19-41); Mean Corp Hgb Conc 31.6 g/gl (32-36); Mean Corpuscular Hgb 31.7 pg (27.0-32.0); Mean Corpuscular Volume 100.4 fL (81-99); Mean Platelet Vol. 10.1 fl (6.2-12.0); Monocyte# 0.33 X10^3/uL; Monocyte% 3.6 % (0-10); Neutrophil # 6.55 X10^3/uL (2.7-7.7); Neutrophil % 72.4 % (47-70); Platelet Count 312 K/mm3 (150-450); RBC Distribution Width CV 16.9 % (11.6-14.6); RBC Distribution Width SD 61.5 fl (35.1-43.9); White Blood Count 9.1 K/mm3 (4.4-11.0)
[2018-07-31 18:47] LABS: Differential Comment SCANNED; Differential Indicated SCAN CRITERIA MET; POSITIVE COUNT NO; POSITIVE DIFFERENTIAL NO; POSITIVE MORPHOLOGY YES
[2018-07-31 18:55] LABS: AST(SGOT) 15 U/L (15-37); Alanine Aminotransfer ALT/SGPT 13 U/L (13-56); Albumin, Serum 2.8 g/dL (3.2-5.0); Alkaline Phosphatase 121 U/L (45-117); Anion Gap 7 (5-15); BUN 33 mg/dL (7-18); BUN/Creat Ratio 12.4 RATIO (10-20); Calcium,Total 8.7 mg/dL (8.5-10.1); Chloride 106 mmol/L (98-107); Creatinine, Serum 2.67 mg/dL (0.55-1.02); EST Glomerular Filtration Rate 19 mL/min (>60); Est Glom Filt Rate - Afr Amer 23 mL/min (>60); Globulin 2.9 g/dL (2.2-4.2); Glucose 124 mg/dL (74-106); Potassium 5.1 mmol/L (3.5-5.1); Protein, Total 5.7 g/dL (6.4-8.2); Sodium Level 138 mmol/L (136-145)
== END ==
PROVIDERS: Family Provider Internal Medicine; PCP Internal Medicine
DX: E87.5 Hyperkalemia (principal); E86.0 Dehydration; N18.9 Chronic kidney disease, unspecified
CPT/HCPCS: 80053; 85025

== ENCOUNTER → 2018-08-26 16:08 | Outpatient (CLI) | payer MEDICARE, MEDICAID, SELFPAY ==
[2017-09-25 18:54] VITALS: BMI 25.3
[2018-08-26 17:11] LABS: Hemoglobin 8.5 g/dl (12.0-15.0); Mean Corp Hgb Conc 30.4 g/gl (32-36); Mean Corpuscular Hgb 30.5 pg (27.0-32.0); Mean Corpuscular Volume 100.4 fL (81-99); Mean Platelet Vol. 10.8 fl (6.2-12.0); Platelet Count 244 K/mm3 (150-450); RBC Distribution Width CV 17.6 % (11.6-14.6); RBC Distribution Width SD 64.8 fl (35.1-43.9); Red Blood Count 2.79 M/mm3 (4.2-5.4); Scan Indicated on CBC? Y/N NO; White Blood Count 9.6 K/mm3 (4.4-11.0)
[2018-08-26 17:26] LABS: ALB/GLOB Ratio 0.9 RATIO (0.9-2.4); AST(SGOT) 28 U/L (15-37); Alanine Aminotransfer ALT/SGPT 15 U/L (13-56); Albumin, Serum 3.1 g/dL (3.2-5.0); Alkaline Phosphatase 136 U/L (45-117); Anion Gap 10 (5-15); BUN 27 mg/dL (7-18); BUN/Creat Ratio 23.3 RATIO (10-20); Calcium,Total 8.9 mg/dL (8.5-10.1); Chloride 109 mmol/L (98-107); Creatinine, Serum 1.16 mg/dL (0.55-1.02); EST Glomerular Filtration Rate 49 mL/min (>60); Est Glom Filt Rate - Afr Amer 59 mL/min (>60); Globulin 3.3 g/dL (2.2-4.2); Glucose 203 mg/dL (74-106); Potassium 4.5 mmol/L (3.5-5.1); Protein, Total 6.4 g/dL (6.4-8.2); Sodium Level 141 mmol/L (136-145)
== END ==
PROVIDERS: Family Provider Internal Medicine; PCP Internal Medicine
DX: R62.7 Adult failure to thrive (principal); N18.9 Chronic kidney disease, unspecified; E87.5 Hyperkalemia
CPT/HCPCS: 80053; 85027

== ENCOUNTER → 2018-08-29 15:14 | Outpatient (CLI) | payer MEDICARE, MEDICAID, SELFPAY ==
[2017-09-25 18:54] VITALS: BMI 25.3
[2018-08-29 15:58] LABS: AST(SGOT) 27 U/L (15-37); Alanine Aminotransfer ALT/SGPT 11 U/L (13-56); Alkaline Phosphatase 140 U/L (45-117); Anion Gap 7 (5-15); BUN 36 mg/dL (7-18); Calcium,Total 8.6 mg/dL (8.5-10.1); Chloride 109 mmol/L (98-107); Creatinine, Serum 1.06 mg/dL (0.55-1.02); EST Glomerular Filtration Rate 54 mL/min (>60); Est Glom Filt Rate - Afr Amer 66 mL/min (>60); Glucose 72 mg/dL (74-106); Potassium 4.4 mmol/L (3.5-5.1); Sodium Level 141 mmol/L (136-145)
[2018-08-29 16:01] LABS: Hematocrit 26.4 % (37-47); Hemoglobin 8.2 g/dl (12.0-15.0); Mean Corp Hgb Conc 31.1 g/gl (32-36); Mean Corpuscular Hgb 30.7 pg (27.0-32.0); Mean Corpuscular Volume 98.9 fL (81-99); Mean Platelet Vol. 10.3 fl (6.2-12.0); Platelet Count 215 K/mm3 (150-450); RBC Distribution Width CV 18.8 % (11.6-14.6); RBC Distribution Width SD 67.6 fl (35.1-43.9); Red Blood Count 2.67 M/mm3 (4.2-5.4); White Blood Count 8.4 K/mm3 (4.4-11.0)
[2018-08-29 16:02] LABS: Scan Indicated on CBC? Y/N YES- FLAGS NOTED
[2018-08-29 17:19] LABS: Differential Comment SCANNED
== END ==
PROVIDERS: Family Provider Internal Medicine; PCP Internal Medicine
DX: R62.7 Adult failure to thrive (principal); N18.9 Chronic kidney disease, unspecified; E87.5 Hyperkalemia
CPT/HCPCS: 80053; 85027

== ENCOUNTER → 2018-09-06 14:19 | Outpatient (CLI) | payer MEDICARE, MEDICAID, SELFPAY ==
[2018-09-06 14:53] LABS: Basophil# 0.04 X10^3/uL; Basophil% 0.4 % (0-1); Eosinophil# 0.94 X10^3/uL; Eosinophils% 10.4 % (0-5); Hematocrit 28.4 % (37-47); Hemoglobin 8.6 g/dl (12.0-15.0); Lymphocyte % 26.6 % (19-41); Mean Corp Hgb Conc 30.3 g/gl (32-36); Mean Corpuscular Hgb 30.6 pg (27.0-32.0); Mean Corpuscular Volume 101.1 fL (81-99); Mean Platelet Vol. 10.7 fl (6.2-12.0); Monocyte# 0.64 X10^3/uL; Monocyte% 7.1 % (0-10); Neutrophil # 4.99 X10^3/uL (2.7-7.7); Neutrophil % 55.4 % (47-70); Platelet Count 249 K/mm3 (150-450); RBC Distribution Width CV 18.8 % (11.6-14.6); RBC Distribution Width SD 69.5 fl (35.1-43.9); Red Blood Count 2.81 M/mm3 (4.2-5.4)
[2018-09-06 14:54] LABS: Differential Indicated SCAN CRITERIA MET; POSITIVE COUNT NO; POSITIVE DIFFERENTIAL NO; POSITIVE MORPHOLOGY YES
[2018-09-06 14:58] LABS: ALB/GLOB Ratio 1.1 RATIO (0.9-2.4); AST(SGOT) 27 U/L (15-37); Alanine Aminotransfer ALT/SGPT 13 U/L (13-56); Albumin, Serum 3.2 g/dL (3.2-5.0); Alkaline Phosphatase 149 U/L (45-117); Anion Gap 9 (5-15); BUN 32 mg/dL (7-18); BUN/Creat Ratio 22.5 RATIO (10-20); Calcium,Total 8.7 mg/dL (8.5-10.1); Chloride 108 mmol/L (98-107); Creatinine, Serum 1.42 mg/dL (0.55-1.02); EST Glomerular Filtration Rate 39 mL/min (>60); Est Glom Filt Rate - Afr Amer 47 mL/min (>60); Glucose 151 mg/dL (74-106); Protein, Total 6.2 g/dL (6.4-8.2); Sodium Level 140 mmol/L (136-145)
== END ==
PROVIDERS: Family Provider Internal Medicine; PCP Internal Medicine
DX: R62.7 Adult failure to thrive (principal); N18.9 Chronic kidney disease, unspecified; E87.5 Hyperkalemia
CPT/HCPCS: 80053; 85025

== ENCOUNTER → 2018-09-15 13:40 | Outpatient (CLI) | payer MEDICARE, MEDICAID, SELFPAY ==
[2018-09-15 14:00] LABS: Absolute Lymphocyte Count 2.51 X10^3/ul (0.83-4.51); Absolute Neutrophil Count 2.8 X10^3/uL (2.0-7.7); Basophil# 0.04 X10^3/uL; Basophil% 0.6 % (0-1); Differential Indicated SCAN CRITERIA MET; Eosinophil# 0.59 X10^3/uL; Eosinophils% 8.9 % (0-5); Hematocrit 27.5 % (37-47); Hemoglobin 8.6 g/dl (12.0-15.0); Lymphocyte # 2.51 X10^3/ul (4.0); Lymphocyte % 37.8 % (19-41); Mean Corp Hgb Conc 31.3 g/gl (32-36); Mean Corpuscular Hgb 31.7 pg (27.0-32.0); Mean Corpuscular Volume 101.5 fL (81-99); Mean Platelet Vol. 10.4 fl (6.2-12.0); Monocyte# 0.66 X10^3/uL; Monocyte% 9.9 % (0-10); Neutrophil # 2.83 X10^3/uL (2.7-7.7); Neutrophil % 42.6 % (47-70); POSITIVE COUNT NO; POSITIVE DIFFERENTIAL NO; POSITIVE MORPHOLOGY YES; Platelet Count 145 K/mm3 (150-450); RBC Distribution Width CV 18.8 % (11.6-14.6); Red Blood Count 2.71 M/mm3 (4.2-5.4); White Blood Count 6.6 K/mm3 (4.4-11.0)
[2018-09-15 14:11] LABS: ALB/GLOB Ratio 1.1 RATIO (0.9-2.4); AST(SGOT) 18 U/L (15-37); Alanine Aminotransfer ALT/SGPT 15 U/L (13-56); Albumin, Serum 3.1 g/dL (3.2-5.0); Alkaline Phosphatase 125 U/L (45-117); Anion Gap 6 (5-15); BUN 35 mg/dL (7-18); BUN/Creat Ratio 31.2 RATIO (10-20); Calcium,Total 8.2 mg/dL (8.5-10.1); Chloride 111 mmol/L (98-107); Creatinine, Serum 1.12 mg/dL (0.55-1.02); EST Glomerular Filtration Rate 51 mL/min (>60); Est Glom Filt Rate - Afr Amer 62 mL/min (>60); Globulin 2.9 g/dL (2.2-4.2); Glucose 84 mg/dL (74-106); Potassium 4.4 mmol/L (3.5-5.1); Sodium Level 142 mmol/L (136-145)
[2018-09-15 14:17] LABS: Hypochromasia 2+; Platelet Estimate ADEQUATE (ADEQ); Rouleaux RARE
== END ==
PROVIDERS: Family Provider Internal Medicine; PCP Internal Medicine
DX: N18.9 Chronic kidney disease, unspecified (principal); E87.5 Hyperkalemia; R62.7 Adult failure to thrive
CPT/HCPCS: 80053; 80197; 85025

== ENCOUNTER → 2018-09-23 15:01 | Outpatient (CLI) | payer MEDICARE, MEDICAID, SELFPAY ==
[2017-09-25 18:54] VITALS: BMI 25.3
[2018-09-23 16:58] LABS: Absolute Lymphocyte Count 1.61 X10^3/ul (0.83-4.51); Absolute Neutrophil Count 4.2 X10^3/uL (2.0-7.7); Basophil# 0.03 X10^3/uL; Basophil% 0.4 % (0-1); Differential Indicated SCAN CRITERIA MET; Eosinophil# 0.57 X10^3/uL; Eosinophils% 8.1 % (0-5); Hematocrit 26.1 % (37-47); Hemoglobin 8.2 g/dl (12.0-15.0); Lymphocyte # 1.61 X10^3/ul (4.0); Lymphocyte % 22.8 % (19-41); Mean Corp Hgb Conc 31.4 g/gl (32-36); Mean Corpuscular Hgb 31.9 pg (27.0-32.0); Mean Corpuscular Volume 101.6 fL (81-99); Mean Platelet Vol. 9.8 fl (6.2-12.0); Monocyte# 0.64 X10^3/uL; Monocyte% 9.1 % (0-10); Neutrophil % 59.5 % (47-70); POSITIVE COUNT NO; POSITIVE DIFFERENTIAL NO; POSITIVE MORPHOLOGY YES; Platelet Count 110 K/mm3 (150-450); RBC Distribution Width CV 17.9 % (11.6-14.6); RBC Distribution Width SD 66.5 fl (35.1-43.9); Red Blood Count 2.57 M/mm3 (4.2-5.4); White Blood Count 7.1 K/mm3 (4.4-11.0)
[2018-09-23 17:02] LABS: AST(SGOT) 24 U/L (15-37); Alanine Aminotransfer ALT/SGPT 17 U/L (13-56); Alkaline Phosphatase 128 U/L (45-117); Anion Gap 7 (5-15); BUN 40 mg/dL (7-18); BUN/Creat Ratio 30.1 RATIO (10-20); Calcium,Total 8.6 mg/dL (8.5-10.1); Chloride 111 mmol/L (98-107); Creatinine, Serum 1.33 mg/dL (0.55-1.02); EST Glomerular Filtration Rate 42 mL/min (>60); Est Glom Filt Rate - Afr Amer 51 mL/min (>60); Glucose 119 mg/dL (74-106); Potassium 5.2 mmol/L (3.5-5.1); Sodium Level 140 mmol/L (136-145)
[2018-09-23 17:19] LABS: Differential Comment SCANNED
[2018-09-28 12:39] LABS: Tacrolimus (FK506) 7.4 ng/mL (2.0-20.0)
== END ==
PROVIDERS: Family Provider Internal Medicine; PCP Internal Medicine
DX: R62.7 Adult failure to thrive (principal); N18.9 Chronic kidney disease, unspecified; E87.5 Hyperkalemia
CPT/HCPCS: 80053; 80197; 85025

== ENCOUNTER → 2018-10-18 16:03 | Outpatient (CLI) | payer MEDICARE, MEDICAID, SELFPAY ==
[2017-09-25 18:54] VITALS: BMI 25.3
[2018-10-18 16:47] LABS: Absolute Lymphocyte Count 1.41 X10^3/ul (0.83-4.51); Absolute Neutrophil Count 3.3 X10^3/uL (2.0-7.7); Basophil# 0.03 X10^3/uL; Basophil% 0.5 % (0-1); Hematocrit 26.5 % (37-47); Hemoglobin 8.2 g/dl (12.0-15.0); Immature Platelet Fraction 4.9 % (1.0-7.9); Lymphocyte # 1.41 X10^3/ul (4.0); Lymphocyte % 22.5 % (19-41); Mean Corp Hgb Conc 30.9 g/gl (32-36); Mean Corpuscular Hgb 30.9 pg (27.0-32.0); Monocyte# 0.99 X10^3/uL; Monocyte% 15.8 % (0-10); Neutrophil # 3.32 X10^3/uL (2.7-7.7); POSITIVE COUNT NO; POSITIVE DIFFERENTIAL NO; POSITIVE MORPHOLOGY NO; Platelet Count 123 K/mm3 (150-450); RBC Distribution Width CV 16.1 % (11.6-14.6); RET-HE 28.4 pg (30-35); Red Blood Count 2.65 M/mm3 (4.2-5.4); Reticulocyte Count 1.75 % (0.5-1.5); White Blood Count 6.3 K/mm3 (4.4-11.0)
[2018-10-18 17:28] LABS: Vitamin B12 827 pg/mL (211-911)
[2018-10-18 17:53] LABS: AST(SGOT) 22 U/L (15-37); Alanine Aminotransfer ALT/SGPT 23 U/L (13-56); Alkaline Phosphatase 124 U/L (45-117); Anion Gap 10 (5-15); BUN 44 mg/dL (7-18); BUN/Creat Ratio 32.6 RATIO (10-20); Calcium,Total 8.5 mg/dL (8.5-10.1); Chloride 108 mmol/L (98-107); Creatinine, Serum 1.35 mg/dL (0.55-1.02); EST Glomerular Filtration Rate 41 mL/min (>60); Est Glom Filt Rate - Afr Amer 50 mL/min (>60); Ferritin 417 ng/mL (8-252); Globulin 3.1 g/dL (2.2-4.2); Glucose 109 mg/dL (74-106); Iron 56 ug/dL (50-170); Iron Binding Capacity,Total 253 ug/dL (250-450); LDH 234 U/L (84-246); PERCENT IRON SATURATION 22.1 % (15.0-55.0); Protein, Total 6.1 g/dL (6.4-8.2); Sodium Level 142 mmol/L (136-145); Uric Acid 4.2 mg/dL (2.6-6.0)
== END ==
PROVIDERS: Family Provider Internal Medicine; PCP Internal Medicine
DX: N18.9 Chronic kidney disease, unspecified (principal); R62.7 Adult failure to thrive
CPT/HCPCS: 80053; 80197; 82607; 82728; 82746; 83540; 83550; 83615; 84550; 85025; 85045

== ENCOUNTER → 2019-02-27 17:16 | Outpatient (CLI) | payer MEDICARE, MEDICAID, SELFPAY ==
[2019-02-27 17:45] LABS: Absolute Lymphocyte Count 1.72 X10^3/uL (0.83-4.51); Basophil% 0.9 % (0-1); Eosinophil# 0.58 X10^3/uL; Hematocrit 33.5 % (37-47); Hemoglobin 10.6 g/dL (12.0-15.0); Lymphocyte # 1.72 X10^3/ul (4.0); Lymphocyte % 14.7 % (19-41); Mean Corp Hgb Conc 31.6 g/dL (32-36); Mean Corpuscular Hgb 30.5 pg (27.0-32.0); Mean Corpuscular Volume 96.5 fL (81-99); Mean Platelet Vol. 11.6 fl (6.2-12.0); Monocyte# 0.88 X10^3/uL; Monocyte% 7.5 % (0-10); NRBC Flagged by Analyzer 0 % (0-5); Neutrophil # 7.95 X10^3/uL (2.7-7.7); Neutrophil % 67.8 % (47-70); POSITIVE MORPHOLOGY YES; Platelet Count 179 K/mm3 (150-450); RBC Distribution Width SD 56.1 fl (35.1-43.9); Red Blood Count 3.47 M/mm3 (4.2-5.4); White Blood Count 11.7 K/mm3 (4.4-11.0)
[2019-02-27 18:09] LABS: ALB/GLOB Ratio 0.9 RATIO (0.9-2.4); AST(SGOT) 20 U/L (15-37); Alanine Aminotransfer ALT/SGPT 19 U/L (13-56); Albumin, Serum 2.9 g/dL (3.2-5.0); Alkaline Phosphatase 106 U/L (45-117); Anion Gap 9 (5-15); BUN 31 mg/dL (7-18); BUN/Creat Ratio 22.3 RATIO (10-20); Calcium,Total 8.9 mg/dL (8.5-10.1); Chloride 107 mmol/L (98-107); Creatinine, Serum 1.39 mg/dL (0.55-1.02); EST Glomerular Filtration Rate 40 mL/min (>60); Est Glom Filt Rate - Afr Amer 48 mL/min (>60); Globulin 3.1 g/dL (2.2-4.2); Glucose 83 mg/dL (74-106); Potassium 4.2 mmol/L (3.5-5.1); Sodium Level 141 mmol/L (136-145)
[2019-02-27 18:52] LABS: Differential Indicated SCAN CRITERIA MET
[2019-02-27 19:03] LABS: Anisocytosis RARE; Macrocytosis RARE; Platelet Estimate ADEQUATE (ADEQ); Red Cell Morphology N CHROM NORMAL (NORM C&C)
[2019-02-28 11:50] LABS: Pathologist Review Reviewed
== END ==
PROVIDERS: Family Provider Internal Medicine; PCP Internal Medicine
DX: N28.9 Disorder of kidney and ureter, unspecified (principal)
CPT/HCPCS: 80053; 85025

== ENCOUNTER → 2019-03-03 16:56 | Outpatient (CLI) | payer MEDICARE, MEDICAID, SELFPAY ==
[2017-09-25 18:54] VITALS: BMI 25.3
[2019-03-03 17:29] LABS: Hematocrit 31.3 % (37-47); Hemoglobin 9.6 g/dL (12.0-15.0); Mean Corp Hgb Conc 30.7 g/dL (32-36); Mean Corpuscular Hgb 30.3 pg (27.0-32.0); Mean Corpuscular Volume 98.7 fL (81-99); Mean Platelet Vol. 10.9 fl (6.2-12.0); POSITIVE COUNT YES; POSITIVE MORPHOLOGY YES; Platelet Count 133 K/mm3 (150-450); RBC Distribution Width CV 16.4 % (11.6-14.6); RBC Distribution Width SD 59.6 fl (35.1-43.9); Red Blood Count 3.17 M/mm3 (4.2-5.4); White Blood Count 7.8 K/mm3 (4.4-11.0)
[2019-03-03 17:40] LABS: ALB/GLOB Ratio 0.9 RATIO (0.9-2.4); AST(SGOT) 18 U/L (15-37); Alanine Aminotransfer ALT/SGPT 17 U/L (13-56); Albumin, Serum 2.7 g/dL (3.2-5.0); Alkaline Phosphatase 106 U/L (45-117); Anion Gap 7 (5-15); BUN 36 mg/dL (7-18); BUN/Creat Ratio 22.2 RATIO (10-20); Calcium,Total 8.4 mg/dL (8.5-10.1); Chloride 108 mmol/L (98-107); Creatinine, Serum 1.62 mg/dL (0.55-1.02); EST Glomerular Filtration Rate 33 mL/min (>60); Est Glom Filt Rate - Afr Amer 40 mL/min (>60); Globulin 3.1 g/dL (2.2-4.2); Glucose 145 mg/dL (74-106); Potassium 4.6 mmol/L (3.5-5.1); Protein, Total 5.8 g/dL (6.4-8.2); Sodium Level 138 mmol/L (136-145)
[2019-03-03 17:52] LABS: Differential Indicated MANUAL DIFF
[2019-03-03 18:05] LABS: Eosinophil 1 % (0-5); Lymphocyte 17 % (19-41); Monocyte 1 % (0-10); Neutrophil-Band 18 % (0-5); Neutrophil-Segmented 63 % (47-70); Platelet Estimate SLT DEC (ADEQ); Red Cell Morphology NORM C+C NORMAL (NORM C&C); Total Cells Counted 100 (MANUAL DIFF)
[2019-03-03 18:07] LABS: Absolute Lymphocyte Count 1.33 X10^3/uL (0.83-4.51); Absolute Neutrophil Count 6.3 X10^3/uL (2.0-7.7)
[2019-03-04 11:06] LABS: Pathologist Review Reviewed
== END ==
PROVIDERS: Family Provider Internal Medicine; PCP Internal Medicine
DX: N28.9 Disorder of kidney and ureter, unspecified (principal)
CPT/HCPCS: 80053; 85025

== ENCOUNTER → 2019-03-31 16:21 | Outpatient (CLI) | payer MEDICARE, MEDICAID, SELFPAY ==
[2017-09-25 18:54] VITALS: BMI 25.3
[2019-03-31 16:44] LABS: AST(SGOT) 23 U/L (15-37); Alanine Aminotransfer ALT/SGPT 12 U/L (13-56); Albumin, Serum 3.1 g/dL (3.2-5.0); Alkaline Phosphatase 99 U/L (45-117); Anion Gap 8 (5-15); BUN 44 mg/dL (7-18); BUN/Creat Ratio 23.3 RATIO (10-20); Calcium,Total 9.2 mg/dL (8.5-10.1); Chloride 105 mmol/L (98-107); Creatinine, Serum 1.89 mg/dL (0.55-1.02); EST Glomerular Filtration Rate 28 mL/min (>60); Est Glom Filt Rate - Afr Amer 34 mL/min (>60); Globulin 3.2 g/dL (2.2-4.2); Glucose 74 mg/dL (74-106); LDH 248 U/L (84-246); Potassium 4.7 mmol/L (3.5-5.1); Protein, Total 6.3 g/dL (6.4-8.2); Sodium Level 139 mmol/L (136-145); Uric Acid 6.8 mg/dL (2.6-6.0)
[2019-03-31 16:47] LABS: Hematocrit 28.3 % (37-47); Mean Corp Hgb Conc 31.8 g/dL (32-36); Mean Corpuscular Volume 97.6 fL (81-99); POSITIVE COUNT YES; POSITIVE MORPHOLOGY YES; Platelet Count 165 K/mm3 (150-450); RBC Distribution Width CV 16.2 % (11.6-14.6); RBC Distribution Width SD 58.2 fl (35.1-43.9); White Blood Count 6.9 K/mm3 (4.4-11.0)
[2019-03-31 16:52] LABS: Differential Indicated MANUAL DIFF
[2019-03-31 18:24] LABS: Absolute Lymphocyte Count 2.48 X10^3/uL (0.83-4.51); Absolute Neutrophil Count 3.5 X10^3/uL (2.0-7.7); Lymphocyte 36 % (19-41); Lymphocyte # 2.48 X10^3/ul (4.0); Metamyelocyte 1 % (0-1); Neutrophil # 3.52 X10^3/uL (2.7-7.7); Neutrophil-Band 9 % (0-5); Neutrophil-Segmented 42 % (47-70); Total Cells Counted 100 (MANUAL DIFF)
[2019-03-31 18:25] LABS: Anisocytosis 1+; Differential Comment SCANNED; Eosinophil 8 % (0-5); Monocyte 4 % (0-10); Ovalocyte RARE; Platelet Estimate ADEQUATE (ADEQ); Schistocytes RARE; Tear Drop Cell RARE
[2019-04-01 15:42] LABS: Pathologist Review Reviewed
== END ==
PROVIDERS: Family Provider Internal Medicine; PCP Internal Medicine
DX: N28.9 Disorder of kidney and ureter, unspecified (principal)
CPT/HCPCS: 80053; 83615; 84550; 85025